=== PATIENT | female | born 1955 | race Two or more races ===

== ENCOUNTER 2018-12-07 08:25 | Day surgery (SDC) | payer BC, OTHER ==
[~2018-12-07] VITALS: Ht 167.6 cm; Wt 75.8 kg
[~2018-12-07 08:25] MED LIST: ARIP10 PO; ASCO500 PO; ASPI81EC PO; CHOL10002 PO; CLON1 PO; CYAN1000 PO; CYCL10 PO; ESTMED1.5T PO; FISH1000 PO; FLAX PO; FLUT.05NI; FLUV50 PO; IBUHYD PO; MELA3 PO; OXYACE5T PO; OXYC10TA19 PO; PHENTERMINE PO; PRAV20 PO; SELENIUM PO; TRAZ50 PO; [UNRECOGNIZED DRUG - OTHER] PO
== END 2018-12-07 10:59 | disposition home or self-care (01) ==
LOC: ORSCSDS 08:25
PROVIDERS: Internal Medicine Gastroenterology
PROC: 0DJD8ZZ Inspection of Lower Intestinal Tract, Via Natural or Artificial Opening Endoscopic (ICD-10-PCS; principal; 2018-12-07 10:00)
DX: K59.00 Constipation, unspecified (principal); K64.8 Other hemorrhoids; K57.30 Diverticulosis of large intestine without perforation or abscess without bleeding; Z79.899 Other long term (current) drug therapy
CPT/HCPCS: J2704; J7120

== ENCOUNTER 2022-07-08 11:34 | Day surgery (SDC) | payer OTHER, BC | END 2022-07-08 23:04 | disposition home or self-care (01) | LOC: WOUND 11:34 | DX: L03.115 Cellulitis of right lower limb (principal); L81.8 Other specified disorders of pigmentation | CPT/HCPCS: A9270; G0463 ==

== ENCOUNTER 2022-07-15 03:38 | Day surgery (SDC) | payer OTHER, BC | END 2022-07-15 23:01 | disposition home or self-care (01) | LOC: WOUND 03:38 | DX: L81.8 Other specified disorders of pigmentation (principal) | CPT/HCPCS: G0463 ==

== ENCOUNTER → 2024-11-20 | Outpatient (CLI) | payer OTHER, BC | LOC: LAB SHORT 14:03 → LAB 14:03 | DX: N95.0 Postmenopausal bleeding (principal) | CPT/HCPCS: 88305 ==